=== PATIENT | male | born 1970 | race Caucasian/White ===

== ENCOUNTER 2019-06-23 14:00 | Emergency (ER) | payer OTHER ==
[~2019-06-23] VITALS: Ht 170.2 cm; Wt 93.0 kg
[2019-06-23 14:10] VITALS: BP 145/84
--- NOTE | 2019-06-23 14:18 | NUR ---
Patient transferred to bed 3 via wheelchair by tech. RN evaluating patient at bedside.
--- NOTE | 2019-06-23 14:32 | NUR ---
48 Y/0 M C/O N/V DIZZINESS STARTED AT 11:30AM TODAY. PATIENT STATES HE HAS HAD VERTIGO IN THE PAST. NEUROLOGICAL EXAM WNL, PERRLA, NO BLURRY VISION, HAND SHREDDING MACHINE TENDER EQUAL. PATIENT STATES NO PAIN. MEDHX: VERTIGO NKA
[2019-06-23] MEDS ORDERED: DIAZEPAM 5 MG TAB PO ONE (14:50)
[2019-06-23] MEDS ORDERED: ONDANSETRON 4 MG/2 ML VIAL IVP ONE (14:50)
[2019-06-23] MEDS ORDERED: NACL 0.9% 1,000 ML IV ONE (14:50)
--- NOTE | 2019-06-23 15:11 | NUR ---
PATIENT TO X-RAY
[2019-06-23 15:17] LABS: BASOPHILS % (AUTO) 0.1 % (0.0-2.0); HEMATOCRIT 45.4 % (36-52); HEMOGLOBIN 15.3 g/dL (12.0-18.0); LYMPHOCYTES # (AUTO) 0.7 K/uL (2.0-11.5); LYMPHOCYTES % (AUTO) 10.7 % (20.5-51.1); MEAN CORPUSCULAR HEMOGLOBIN 33 pg (27-31); MEAN CORPUSCULAR HGB CONC 34 g/dL (33-37); MEAN CORPUSCULAR VOLUME 97.1 fL (80-94); MONOCYTES # (AUTO) 0.2 K/uL (0.8-1.0); MONOCYTES % (AUTO) 2.6 % (1.7-9.3); NEUTROPHILS # (AUTO) 5.7 K/uL (1.8-7.7); NEUTROPHILS % (AUTO) 86.6 % (42.2-75.2); PLATELET COUNT (AUTO) 215 K/uL (140-450); RED BLOOD CELL COUNT(AUTO) 4.67 MIL/uL (4.20-6.10); WHITE BLOOD COUNT (AUTO) 6.6 K/uL (4.8-10.8)
--- NOTE | 2019-06-23 15:21 | NUR ---
PATIENT BACK FROM X-RAY
[2019-06-23 15:32] LABS: ALBUMIN 4.3 g/dL (3.4-5.0); ANION GAP 14.1 (8-16); CARBON DIOXIDE 29.1 mmol/L (21-32); CREATININE 0.8 mg/dL (0.7-1.3); POTASSIUM 4.2 mmol/L (3.5-5.1); TOTAL BILIRUBIN 0.9 mg/dL (0.0-1.0)
--- NOTE | 2019-06-23 16:10 | NUR ---
Dr. Ocampo is evaluating the patient at bedside.
[2019-06-23] MEDS ORDERED: ASPIRIN 325 MG TAB PO ONE (18:40)
--- NOTE | 2019-06-23 19:01 | NUR ---
CALLED [facility] [phone] TO LET THEM KNOW PATIENT WAS GOING TO BE TRANSPORTED TO THEM IN 1-2 HOURS. GAVE REPORT TO RN.
--- NOTE | 2019-06-23 19:15 | NUR ---
RECIEVED REPORT FROM RENAN. PATIENT LAYING DOWN IN BED, HOOKED UP TO MONITOR. VSS ON MONITOR. DENIES PAIN AT THIS TIME. STATES HE HAS NO NEW NEEDS. PATIENT AAO, SPEAKING IN COMPLETE SENTENCES. AT BEDSIDE.
[2019-06-23 19:52] VITALS: BP 135/85
--- NOTE | 2019-06-23 19:52 | NUR ---
PATIENT PICKED UP FOR TRANSFER TO [facility]. TAKEN BY BAO BY SHEFALI, TRANSFER TEAM. PATIENT AAO, VSS AT TIME OF TRANSFER.
== END 2019-06-23 19:52 | disposition short-term general hospital (02) ==
LOC: MED 14:00
DX: G11.9 Hereditary ataxia, unspecified (principal); R42 Dizziness and giddiness
CPT/HCPCS: 36415; 70450; 80053; 85025; 96361; 96374; 99285; J2405; 99284